=== PATIENT | male | born 1980 | race Caucasian/White ===

== ENCOUNTER 2018-09-15 10:04 | Outpatient (CLI) | payer BC, SELFPAY ==
[2018-09-15 12:34] LABS: Anion Gap 5.7 mmol/L (3-11); BUN 14 mg/dL (7-18); CO2 30.3 mmol/L (21.0-32.0); CREATININE 0.79 mg/dL (0.70-1.30); Chloride 104 mmol/L (98-107); Cholesterol 253 mg/dL (50-200); Glucose 86 mg/dL (70-100); HDL Cholesterol 37 mg/dL (40-60); LDL CHOLESTEROL 171 mg/dL (<100); Potassium 4.2 mmol/L (3.5-5.1); Sodium 140 mmol/L (136-145); Triglyceride 255 mg/dL (30-150)
== END 2018-09-15 10:24 ==
PROVIDERS: PCP Nurse Practitioner Family; Visit Provider Nurse Practitioner Family
DX: I10 Essential (primary) hypertension (principal); E78.5 Hyperlipidemia, unspecified
CPT/HCPCS: 36415; 80048; 80061; 83721

== ENCOUNTER 2020-04-07 22:05 | Outpatient (REF) | payer BC, SELFPAY ==
[2020-04-07 19:02] LABS: HCT 44.8 % (40.0-50.0); HGB 15.5 g/dL (13.5-17.5); Mean Corp. HGB Concentration 34.6 g/dL (32.0-36.0); Mean Corpuscular Hemoglobin 30.5 pg (27.0-33.0); Mean Corpuscular Volume 88.2 fL (80-95); Mean Platelet Volume 11.8 fL (8.0-11.0); Platelet Count 232 x1000/uL (130-400); RBC 5.08 m/cumm (4.50-6.00); RBC Distribution Width 12.2 % (11.8-14.1); White Blood Cell Count 8.46 k/cumm (4.4-10.8)
[2020-04-07 19:16] LABS: ALT 133 U/L (16-63); AST 58 U/L (15-37); Albumin 4.4 g/dL (3.4-5.0); Alkaline Phosphatase 70 U/L (46-116); Anion Gap 10.5 mmol/L (3-11); BUN 17 mg/dL (7-18); Bilirubin, Total 0.6 mg/dL (0.2-1.0); CO2 26.5 mmol/L (21.0-32.0); CREATININE 1.34 mg/dL (0.70-1.30); Calcium 9.4 mg/dL (8.5-10.1); Calculated LDL 193 mg/dL (<100); Chloride 102 mmol/L (98-107); Cholesterol 272 mg/dL (<200); Estimated GFR 58.74 (mL/min/1.73m2); Glucose 96 mg/dL (74-106); HDL Cholesterol 38 mg/dL (40-60); Potassium 4.2 mmol/L (3.5-5.1); Sodium 139 mmol/L (136-145); Total Protein 7.8 g/dL (6.4-8.2); Triglyceride 208 mg/dL (<150)
[2020-04-07 19:27] LABS: PROTEIN 12.9 mg/dL
[2020-04-07 19:31] LABS: COMMENT (LAB VIEW ONLY) 119.17 mg/dL; Microalb ug/mg Crea 5.2 ug/mg Cr
[2020-04-09 10:27] LABS: HIV-1/2 Ag & Ab Screen Negative (Negative)
[2020-04-09 11:06] LABS: Hepatitis C Ab w Rflx HCV PCR Negative (Negative)
== END 2020-04-07 22:25 ==
LOC: NCHCN 22:05
PROVIDERS: PCP Nurse Practitioner Family; Visit Provider Nurse Practitioner Family
DX: Z00.00 Encounter for general adult medical examination without abnormal findings (principal); I10 Essential (primary) hypertension; E78.5 Hyperlipidemia, unspecified; K76.0 Fatty (change of) liver, not elsewhere classified
CPT/HCPCS: 80053; 80061; 85027; 86803; 87389; 82043; 82565; 82570; 84156

== ENCOUNTER 2020-07-29 14:26 | Outpatient (REF) | payer BC, SELFPAY ==
[2020-08-02 08:00] LABS: SARS-CoV-2 RNA Undetected (Undetected); SARS-CoV-2 Specimen Source Nasal
== END 2020-07-29 14:46 ==
LOC: NCHCN 14:26
PROVIDERS: PCP Nurse Practitioner Family; Visit Provider Nurse Practitioner Family
DX: Z20.828 Contact with and (suspected) exposure to other viral communicable diseases (principal)
CPT/HCPCS: U0003

== ENCOUNTER 2020-10-02 20:59 | Outpatient (REF) | payer BC, SELFPAY ==
[2020-10-02 17:05] LABS: ALT 102 U/L (16-63); AST 48 U/L (15-37); Albumin 4.5 g/dL (3.4-5.0); Alkaline Phosphatase 77 U/L (46-116); Anion Gap 9.5 mmol/L (3-11); BUN 14 mg/dL (7-18); Bilirubin, Total 0.3 mg/dL (0.2-1.0); CO2 28.5 mmol/L (21.0-32.0); CREATININE 0.85 mg/dL (0.70-1.30); Calcium 9.4 mg/dL (8.5-10.1); Calculated LDL 148 mg/dL (<100); Chloride 101 mmol/L (98-107); Cholesterol 233 mg/dL (<200); Glucose 94 mg/dL (74-106); HDL Cholesterol 47 mg/dL (40-60); Sodium 139 mmol/L (136-145); Total Protein 8.1 g/dL (6.4-8.2); Triglyceride 193 mg/dL (<150)
== END 2020-10-02 21:19 ==
LOC: NCHCN 20:59
PROVIDERS: PCP Nurse Practitioner Family; Visit Provider Nurse Practitioner Family
DX: I10 Essential (primary) hypertension (principal); E78.5 Hyperlipidemia, unspecified; K76.0 Fatty (change of) liver, not elsewhere classified
CPT/HCPCS: 80053; 80061

== ENCOUNTER 2021-02-05 15:09 | Outpatient (REF) | payer BC, SELFPAY ==
[2021-02-06 15:25] LABS: Chlamydia Result Negative (Negative); GC Result Negative (Negative)
[2021-02-09 10:15] LABS: HBs Antibody, Quant 54.3 mIU/mL (See Note); Hepatitis B Surface Ab Positive (See Note)
[2021-02-09 10:28] LABS: Hepatitis B Surface Ag Negative (Negative)
[2021-02-09 10:51] LABS: Syphilis Serology (RPR) Negative (Negative)
[2021-02-09 11:09] LABS: Hepatitis C Ab w Rflx HCV PCR Negative (Negative)
[2021-02-09 11:22] LABS: HIV-1/2 Ag & Ab Screen Negative (Negative)
== END 2021-02-05 15:10 | disposition home or self-care (01) ==
LOC: NCHCN 15:09
PROVIDERS: PCP Nurse Practitioner Family; Visit Provider Nurse Practitioner Family
DX: N50.9 Disorder of male genital organs, unspecified (principal); N53.19 Other ejaculatory dysfunction; Z11.4 Encounter for screening for human immunodeficiency virus [HIV]; Z11.59 Encounter for screening for other viral diseases
CPT/HCPCS: 86706; 86803; 87340; 87389; 87491; 87591; 86592

== ENCOUNTER 2021-10-06 17:03 | Emergency (ER) | payer OTHER, BC, SELFPAY ==
[2021-10-06] VITALS (7 sets, daily range): BP systolic 150–179; BP diastolic 106–115; PULSE 80–89; RESP 14; TEMP 36.8–36.9; O2SAT 98–100
--- NOTE | 2021-10-06 18:17 | DI.CT_ITS ---
Exam(s) CT HEAD WO EXAM: CT HEAD WO CLINICAL HISTORY: HI, left sided, worsening ORTEGA. TECHNIQUE: Imaging Protocol: Axial computed tomography images with coronal and sagittal reformatted images were created and reviewed COMPARISON: No exams were available for comparison FINDINGS: There are no skull fractures nor fluid in the visualized paranasal sinuses. There is no evidence of intracranial hemorrhage, mass effect, or shift of midline structures. There are no extra-axial fluid collections. The ventricles are not enlarged or shifted and there is no blo od within the ventricular system nor within the basal cisterns. IMPRESSION: No acute intracranial findings on this noninfused CT scan of the brain. RADIATION DOSE DELIVERED: 822.53mGy.cm Total DLP DATA REPOSITORY: All CT scans at this facility are submitted to the National Radiology Data Registry (NRDR) Dose Index Registry (DIR) with the [employer] ([employer]). RADIATION OPTIMIZATION: All CT scans at this facility use at least one of these dose optimization te chniques: automated exposure control; mA and/or kV adjustment per patient size (includes targeted exa ms where dose is matched to clinical indication); or iterative reconstruction.
--- NOTE | 2021-10-06 18:32 | DI.VRAD_ITS ---
PROCEDURE INFORMATION: Exam: CT Head Without Contrast Exam date and time: 10/06/2021 5:28 PM Age: 41 years old Clinical indication: Injury or trauma; Concussion/head injury; Consciousness not specified; Injury details: Hit head - lt side - foreheadleft eye TECHNIQUE: Imaging protocol: Computed tomography of the head without contrast. Radiation optimization: All CT scans at this facility use at least one of these dose optimization techniques: automated exposure control; mA and/or kV adjustment per patient size (includes targeted exams where dose is matched to clinical indication); or iterative reconstruction. COMPARISON: No relevant prior studies available. FINDINGS: Brain: Normal. No hemorrhage. Unremarkable white matter. No mass effect. Cerebral ventricles: No ventriculomegaly. Paranasal sinuses: Visualized sinuses are unremarkable. No fluid levels. Mastoid air cells: Visualized mastoid air cells are well aerated. Bones/joints: Unremarkable. No acute fracture. Soft tissues: Unremarkable. IMPRESSION: No acute intracranial abnormality. Dictated and Authenticated by: Dre Quiñones MD. Ordering:HEIDE Cotter MD
--- NOTE | 2021-10-06 18:37 | ED.GENADUL_ITS ---
Discharge Plan Disposition Patient Disposition: HOME Condition: Stable Discharge Details Clinical Impression: Concussion Primary Care Provider: Yulisa Campos ED Provider: Cyndee Mercado Home Meds and New Rx's Prescriptions: Continued lovastatin 20 mg tablet 20 mg PO DAILY RF: 0 desonide 0.05 % cream 1 applic TP BID PRNRF: 0 Discharge Instructions Instructions: Concussion (ED) Additional Instructions: Take ibuprofen and Tylenol as needed for discomfort Do not operate heavy machinery while you are feeling foggy and lightheaded Limit use of your electronic devices as it can delay healing from your concussion Should you develop worsening headache, uncontrolled vomiting, worsening dizziness, the recommendation is that you be reassessed immediately Your symptoms can last anywhere from several days to several months. Stand Alone Forms: Work Release Referrals: Yulisa Campos [Primary Care Provider] - Discharge Data Discharge Date/Time-TO BE ENTERED AT DEPARTURE: 10/06/21 19:13 Medical Decision Making Patient appears well, head CT is negative for acute abnormality Ambulatory with steady gait Concussion return precautions discussed Medical Records Medical records reviewed: Yes I reviewed the patient's medical records. HPI General Mode of arrival: ambulatory . Date/Time Provider Initiated Documentation: 10/06/21 17:08 . Limitations to Documentation: no limitations . Information obtained by: patient . HPI Narrative: This 41-year-old male presents with report of headache and fogginess. He fell after slipping on ice into his tailgate approximately 3 days ago. He actually on Tuesday he felt fine but then Tuesday and Tuesday his pain began to worsen which is why he went to urgent care today. He states that he has had persistent pain today. He denies any chest pain or shortness of breath. He denies any dizziness or weakness. Pain or denies any loss of consciousness. Denies any chest pain or shortness of breath. Denies any dizziness or weakness. Denies any strength or sensation changes. Denies any history of coagulopathy. Denies neck pain Related Data Home Medications Medication Instructions Recorded Confirmed desonide 0.05 % topical cream 1 applic TP BID PRN 04/16/20 10/06/21 lovastatin 20 mg tablet 20 mg PO DAILY 05/13/20 10/06/21 Allergies Allergy/AdvReac Type Severity Reaction Status Date / Time barley Allergy Verified 10/06/21 17:10 lisinopril Allergy Verified 10/06/21 17:10 Pork/Porcine Containing Allergy Verified 10/06/21 17:10 Products wheat Allergy Verified 10/06/21 17:10 bee stings Allergy Uncoded 10/06/21 17:10 General Stated Complaint: HeadInjury GISELLE: 3 Review of Systems All systems reviewed & are unremarkable except as noted in HPI and below PFSH All Active Problems (Updated 10/06/21 @ 18:44 by PITO Calero) Concussion (Acute) HLD (hyperlipidemia) (Acute) Benign essential hypertension (Acute) Medical History (Updated 10/06/21 @ 18:44 by PITO Calero) Deviated nasal septum Family history of heart disease Fatty liver Social History Smoking/Tobacco Use Status: Never Smoking risk assessment performed?: Yes Alcohol Intake: former Drug use: Never Substance use type: does not use Do you feel safe at home: Yes Exam Const General: cooperative, comfortable and no acute distress HENMT Head: no palpable skull fracture Head images: 1. Tenderness, ecchymosis Mouth: oral mucosae normal Eyes Pupils: PERRL Neck Other: No midline tenderness Resp Effort & Inspection: normal respiratory effort Auscultation: clear to auscultation bilaterally Cardio Rate: regular rate Rhythm: regular rhythm Neuro General: patient alert and patient oriented x3 Cranial Nerves: CN's II-XI intact bilaterally and tongue midline Cognition: normal cognition Speech: speech normal Gait: normal gait Sensory Exam: no sensory deficits noted Other: GCS 15 Course Vital Signs Vital signs: Vital Signs Temperature 36.8 C 10/06/21 17:07 Pulse 84 10/06/21 17:07 Respiratory Rate 14 10/06/21 17:07 Blood Pressure 169/106 H 10/06/21 17:07 Pulse Oximetry 100 10/06/21 17:07 Temperature 36.8 C 10/06/21 17:07 Temperature Source Temporal Artery Scan 10/06/21 17:07 Pulse 80 10/06/21 17:18 Respiratory Rate 14 10/06/21 17:07 Respiratory Effort Non-Labored 10/06/21 17:11 Respiratory Depth Normal 10/06/21 17:11 Respiratory Pattern Normal 10/06/21 17:11 Blood Pressure 150/112 H 10/06/21 17:18 Blood Pressure Mean 121 10/06/21 17:18 Blood Pressure Position Sitting 10/06/21 17:07 Pulse Oximetry 99 10/06/21 17:20 Oxygen Delivery Method Room Air 10/06/21 17:07 Oxygen Flow Rate 0 10/06/21 17:07 Pain Level 3 10/06/21 17:07
== END 2021-10-06 19:13 | disposition home or self-care (01) ==
PROVIDERS: Emergency Provider Physician Assistant; PCP Nurse Practitioner Family
DX: S06.0X0A Concussion without loss of consciousness, initial encounter (principal); W22.8XXA Striking against or struck by other objects, initial encounter
CPT/HCPCS: 99284; 70450; 99283

== ENCOUNTER 2021-10-19 18:46 | Outpatient (REF) | payer BC, SELFPAY ==
[2021-10-19 16:33] LABS: ALT 56 U/L (16-63); AST 27 U/L (15-37); Albumin 4.3 g/dL (3.4-5.0); Alkaline Phosphatase 91 U/L (46-116); Anion Gap 13.3 mmol/L (3-11); BUN 12 mg/dL (7-18); Bilirubin, Total 0.2 mg/dL (0.2-1.0); CO2 25.7 mmol/L (21.0-32.0); CREATININE 0.7 mg/dL (0.70-1.30); Calcium 8.9 mg/dL (8.5-10.1); Calculated LDL 111 mg/dL (<100); Chloride 104 mmol/L (98-107); Cholesterol 181 mg/dL (<200); Glucose 85 mg/dL (74-106); HDL Cholesterol 48 mg/dL (40-60); Potassium 4.5 mmol/L (3.5-5.1); Sodium 143 mmol/L (136-145); Total Protein 7.5 g/dL (6.4-8.2); Triglyceride 113 mg/dL (<150)
== END 2021-10-19 18:47 | disposition home or self-care (01) ==
LOC: NCHCN 18:46
PROVIDERS: PCP Nurse Practitioner Family; Visit Provider Nurse Practitioner Family
DX: E78.5 Hyperlipidemia, unspecified (principal)
CPT/HCPCS: 80053; 80061

== ENCOUNTER 2021-11-20 18:32 | Outpatient (REF) | payer BC, SELFPAY ==
[2021-11-20 18:47] LABS: Anion Gap 9.3 mmol/L (3-11); BUN 12 mg/dL (7-18); CO2 26.7 mmol/L (21.0-32.0); CREATININE 0.8 mg/dL (0.70-1.30); Calcium 9.2 mg/dL (8.5-10.1); Chloride 104 mmol/L (98-107); Glucose 115 mg/dL (74-106); Sodium 140 mmol/L (136-145)
== END 2021-11-20 18:33 | disposition home or self-care (01) ==
LOC: LBN 18:32
PROVIDERS: PCP Nurse Practitioner Family; Visit Provider Nurse Practitioner Family
DX: I10 Essential (primary) hypertension (principal)
CPT/HCPCS: 80048